=== PATIENT | female | born 1980 | race Asian ===

== ENCOUNTER 2023-11-05 09:31 | Emergency (ER) | payer OTHER ==
[~2023-11-05] VITALS: Ht 162.6 cm; Wt 68.0 kg
[2023-11-05 09:46] VITALS: BP_SYST 114; PULSE 104; RESP 15; TEMP 97.5; O2SAT 97
== END 2023-11-05 10:23 | disposition home or self-care (01) ==
LOC: SED 09:31
DX: S01.81XA Laceration without foreign body of other part of head, initial encounter (principal); Z79.899 Other long term (current) drug therapy; W22.8XXA Striking against or struck by other objects, initial encounter; Y93.89 Activity, other specified; Y92.89 Other specified places as the place of occurrence of the external cause; Y99.8 Other external cause status
CPT/HCPCS: 99282

== ENCOUNTER 2023-12-25 21:14 | Emergency (ER) | payer OTHER ==
[~2023-12-25] VITALS: Ht 162.6 cm; Wt 68.9 kg
[2023-12-25 22:18] VITALS: BP_SYST 137; PULSE 72; RESP 20; TEMP 97.3; O2SAT 97
[2023-12-26] MEDS: AMOXICILLIN/POTASSIUM CLAV 875 MG TABLET PO ONE (03:39)
[2023-12-26] MEDS: DIPHTH,PERTUSS(ACELL),TET VAC 0.5 ML VIAL (Tdap) I.M. ONE (03:39)
[2023-12-26] MEDS: RABIES VACCINE (PCEC)/PF 2.5 UNIT VIAL I.M. ONE (03:40)
[2023-12-26] MEDS ORDERED: AUG875 PO (03:48)
[2023-12-26 04:01] VITALS: BP_SYST 137; PULSE 72; RESP 20; TEMP 97.3; O2SAT 97
== END 2023-12-26 04:02 | disposition home or self-care (01) ==
LOC: SED 21:14
DX: S61.442A Puncture wound with foreign body of left hand, initial encounter (principal); Z79.899 Other long term (current) drug therapy; W55.01XA Bitten by cat, initial encounter; Y93.89 Activity, other specified; Y92.89 Other specified places as the place of occurrence of the external cause; Y99.8 Other external cause status
CPT/HCPCS: 90715; 96372; 99284

== ENCOUNTER 2024-01-22 22:03 | Emergency (ER) | payer OTHER ==
[~2024-01-22] VITALS: Ht 162.6 cm; Wt 68.9 kg
[~2024-01-22 22:03] MED LIST: AUG875 PO
[2024-01-22 22:11] VITALS: BP_SYST 122; PULSE 81; RESP 16; TEMP 97; O2SAT 98
[2024-01-22 22:57] VITALS: BP_SYST 122; PULSE 81; RESP 16; TEMP 97; O2SAT 98
== END 2024-01-22 22:57 | disposition home or self-care (01) ==
LOC: SED 22:03
DX: S90.8 Other superficial injuries of foot (principal); W54.0XXD Bitten by dog, subsequent encounter
CPT/HCPCS: 99281